=== PATIENT | female | born 1940 | race Caucasian/White ===

== ENCOUNTER 2017-03-16 10:53 | Emergency (ER) | payer MEDICARE, OTHER ==
[~2017-03-16] VITALS: Ht 175.3 cm; Wt 84.1 kg
[~2017-03-16 10:53] MED LIST: ALPR1TAB7 PO; AMIT100T2 PO; IBUP200C PO; LEVO50TA6 PO; OMEP40CA36 PO; OXYB10TA6 PO; PARO40TA3 PO
[2017-03-16 11:04] VITALS: BP 120/69; PULSE 70; RESP 16; O2SAT 97
[2017-03-16] MEDS ORDERED: HYDROcodone-APAP 5-325 mg Tablet PO ONE (11:10)
--- NOTE | 2017-03-16 12:28 | ED.REPORT ---
HPI-Extremity Problem Lower Date of Service Mar 16, 2017 ED Provider: Abner Infante MD 76 y/o relatively healthy female w/ a hx of pheochromocytoma s/p resection, prior pneumonia, presents to the ED due to left ankle injury after she fell down the stairs prior to arrival. Her last meal was at 9:30 this morning at which time she ate nuts and orange juice. She states that she has had pneumonia for 4 months and during her surgery to resect the pheochromocytoma she "flatlined". Pt denies numbness of the foot or any other sites of injury. Nursing Notes Stated Complaint: POSS LT BROKEN ANKLE Chief Complaint: Extremity Trauma Nursing Notes Reviewed: Yes Allergies: Coded Allergies: No Known Allergies (Verified , 03/16/17) Scheduled Amitriptyline (Amitriptyline) 100 Mg Tablet 100 MG PO HS Levothyroxine (Levothyroxine) 50 Mcg Tablet 50 MCG PO DAILY Omeprazole (Omeprazole) 40 Mg Capsule.dr 40 MG PO DAILY Oxybutynin Chloride ER (Ditropan XL) 10 Mg Tab.er.24 10 MG PO DAILY Paroxetine (Paroxetine) 40 Mg Tablet 40 MG PO HS Scheduled PRN Alprazolam (Alprazolam) 1 Mg Tablet 1 MG PO HS PRN PRN For Anxiety Ibuprofen (Ibuprofen) 200 Mg Capsule 200 MG PO QID PRN PRN For Pain General Time Seen by MD: 11:13 Chief Complaint Ankle injury left Hx Obtained From: Patient Arrived By: Walk-in Onset Occurred: Just prior to arrival Symptom Duration: Since onset Caused by: Fall from height... Location: : Ankle left Quality: Painful Severity: Current: Moderate Severity: Maximum: Moderate Recent Healthcare: No recent doctor visit Similar Sx Previous: No Past Medical History Past Medical History Anxiety Depression Pneumonia Marijuana abuse Cystoliths Cervical stenosis Back pain Past Surgical History Adrenal gland removal Cystoscopy Reports: Hysterectomy, Tonsillectomy Smoking History Former Smoker Social History Alcohol Use: "Social" Drug Use: THC Other Social History: Good social support Ambulatory Status Independent Review of Systems Constitutional: Denies: Fever, Weakness - generalized Musculoskeletal: Reports: Joint pain, Joint swelling Neurologic: Denies: Change LOC, Headache, Numbness Complete sys rev & neg: except as marked. Physical Exam Initial Vital Signs Vital Signs (First) Date Time Temp Pulse Resp B/P Pulse Ox O2 Delivery O2 Flow Rate FiO2 03/16/17 11:04 36.9 70 16 120/69 97 Room Air Initial VS: Reviewed, Vital signs normal Head / Eyes: Atraumatic, Normocephalic, PERRL ENT: Mucous membranes moist, Conjunctiva normal, No scleral icterus Neck: Supple, Full range of motion Respiratory: Breath sounds normal, Clear to auscultation, No respiratory distress Cardiovascular: Regular rate & rhythm, Heart sounds normal, Intact distal pulses Abdomen / GI: Soft, Non-tender, No guarding, No rebound, No distention Upper Extremities: Vascular intact, Neuro intact, No swelling, No tenderness Neurologic: Alert, Oriented, Nonfocal Psychiatric: Mood/affect normal, Behavior normal, Normal thought content Lower Extremity / Pelvis / MS: Neurologic intact Ankle / Foot: Neurologic intact, Vascular intact Obvious deformity with swelling of the left ankle Tinting of the skin medial left ankle Pulses intact Good cap refill General/Constitutional: Awake, Alert, Cooperative, Not toxic appearing Interpretation & Diagnostics X-Ray Interpretation Xray Interpretation: FINDINGS: Bones: There are comminuted fractures of the distal tibia and fibula with involvement of the medial, lateral, and posterior malleoli. There is involvement of the tibiotalar joint with posterior dislocation of the talus with respect to the tibia. There is also involvement of the distal tibiofibular syndesmosis which appears widened Soft tissues: There is periarticular soft tissue swelling. IMPRESSION: 1. Comminuted trimalleolar fracture-dislocation of the left ankle. Dictated by: Joe Wan M.D. on 03/16/2017 at 12:43 Approved by: Joe Wan M.D. on 03/16/2017 at 12:47 Study Performed: 3 view X-Ray Ordered: Ankle left Interpretation / Wet Read by: Interpret - Radiologist Xray Interpretation: IMPRESSION: Improved alignment of a complex trimalleolar left ankle fracture, status post closed reduction. There continues to be mild residual posterior subluxation of the talus and the posterior distal tibia and fibula fracture fragments. Dictated by: Kingsley Barakat M.D. on 03/16/2017 at 13:22 Approved by: Kingsley Barakat M.D. on 03/16/2017 at 13:25 Study Performed: 4 view X-Ray Ordered: Ankle left Interpretation / Wet Read by: Interpret - Radiologist Procedures Procedure Notes: Fracture reduction performed at 13:[address] Rivera. Moderate success. Proced Mod Sedation/Analgesia Time: 13:50 Procedure Performed by: ED physician Sedation Time: 10 - 15 min Consent / Setup: Informed consent provided, Consent from patient, Time-out performed, Hand hygiene observed, Stand sterile technique, Position supine Indication: Fracture reduction Preparation: environmental intern applied, Pulse oximeter applied, Constant attendance, IV access established, Eval last meal time, Supplemental oxygen, Procedure explained, Suction available, End tidal CO2 mon applied VS Prior to Procedure: All vital signs normal, O2 saturation normal, Blood pressure normal, Heart Rate normal, Respiratory rate normal Mallampati: Class & Anatomy: 2 top tonsil/uvula/palate Airway Exam: Normal facial anatomy, Normal neck anatomy, Normal anatomy CVS/Resp Exam: Normal breath sounds, Normal heart sounds Neuro Exam: Alert, No acute distress, Responsive Sedation: Sedation: Propofol (100mg) ASA Classification: 3 sev disease/not incap Response During Procedure: Handled secretions adeq, Maintained airway well, Oxygenation stable, Sedation appropriate, Vital signs stable Complications During/After: None Reversal: None required Mental Status After Procedure: Alert, Oriented X3 Post-Procedure: Vital signs normal Attestation: I performed sedation Re-Eval/Medical Decision Med Decision/Clinical Course 76-year-old female history of smoking, pheochromocytoma status post resection, pneumonia presenting status post fall down stairs with left ankle trimalleolar fracture dislocation. Consulted orthopedics and we reduced. I performed conscious sedation with propofol as above. Orthopedics requested transfer to [facility] for higher level of care for surgical repair. Pulses and neurovascularly intact status post reduction and splint placement. Transferred to [facility] via ALS. Source of Hx: Old records Re-Evaluation/Progress : Time of Eval: 12:28 Re-Evaluation/Progress Note: Pt rechecked. Discussed imaging results and diagnosis. Informed the pt of the plan to transfer to [facility]. Pt understands and agrees with plan. Consultation : Referral / Consult Name: Art Rivera MD Consulted With: Orthopedic Call Returned at: 12:52 Licensed Pharmacist: Will see patient, Agrees with eval, Agrees with plan Note: Dr. Rivera performed fracture/dislocation reduction in the ED and recommends transfer to [facility]. Counseled Regarding: Diagnosis, Need for transfer Discharge & Departure Impression: Primary Impression: Trimalleolar fracture of left ankle Encounter type: initial encounter Fracture type: closed Qualified Code: S82.852A - Displaced trimalleolar fracture of left lower leg, initial encounter for closed fracture Additional Impression: Traumatic dislocation of left ankle Encounter type: initial encounter Qualified Code: S93.05XA - Dislocation of left ankle joint, initial encounter Disposition: Transfer, Acute Care Facility Transfer Requested at: 14:35 Receiving Hospital: [facility] Transfer Accepted: Yes Transfer Accepted at: 14:35 Transfer Reason: Trauma Spoke with: Emergency physician, Specialty physician Patient Informed: Yes Discharge Condition All VS Reviewed: Yes Referrals: Tomi Stoll MD (PCP) Crit Care Except Billable Proc Time Spent: 30-74 minutes Services Performed: Patient management by me, Time spent at bedside, Reviewing test results, Reviewing imaging, Discussing patient care, Documentation in record, Time with fam/surrogate Critical Care Notes: 35 minutes Scribe Attestation Portions of this note were transcribed by Enma Londono. I, , personally performed the history, physical exam and medical decision-making;I reviewed and confirmed the accuracy of the information in the transcribed note. Signed by Enma Ro and Андрей Hunt. 03/16/17 TIME copies to: Tomi Stoll MD, Ben M MD Mar 16, 2017 12:28 Enma Ro Mar 16, 2017 13:34 THEODORE LONDONO Mar 16, 2017 14:32
[2017-03-16] MEDS ORDERED: Ondansetron 2 mg/mL 2 mL Inj IVPUSH PRN (12:35)
[2017-03-16] MEDS ORDERED: HYDROmorphone 1 mg/mL Inj IVPUSH PRN (12:35)
--- NOTE | 2017-03-16 12:49 | DRSVH ---
PROCEDURE: X-RAY LEFT ANKLE, MINIMUM THREE VIEWS ([id number]) INDICATIONS: trauma TECHNIQUE: 3 views of the ankle were acquired. COMPARISON: None. FINDINGS: Bones: There are comminuted fractures of the distal tibia and fibula with involvement of the medial, lateral, and posterior malleoli. There is involvement of the tibiotalar joint with posterior disloc ation of the talus with respect to the tibia. There is also involvement of the distal tibiofibular s yndesmosis which appears widened Soft tissues: There is periarticular soft tissue swelling. IMPRESSION: 1. Comminuted trimalleolar fracture-dislocation of the left ankle. Dictated by: Joe Wan M.D. on 03/16/2017 at 12:43 Approved by: Joe Wan M.D. on 03/16/2017 at 12:47
[2017-03-16] MEDS ORDERED: Propofol 10 mg/mL 20 mL Inj ONE (13:36)
[2017-03-16] MEDS ORDERED: Propofol 10 mg/mL 20 mL Inj IVPUSH ONE (13:40)
--- NOTE | 2017-03-16 14:27 | DRSVH ---
PROCEDURE: X-RAY LEFT ANKLE, TWO VIEWS ([id number]) INDICATIONS: POST REDUCTION TECHNIQUE: At least 2 views of the ankle were acquired. COMPARISON: [facility], CR, XR ANKLE 3VW LT, 03/16/2017, 11:52. FINDINGS: Significant interval improvement in the alignment of the ankle fracture is evident on the provided im ages. However, there continues to be residual posterior subluxation of the smaller fracture fragment s of the posterior distal tibia and the fibula. Additionally, the talus is positioned more posterior ly with respect to the principal (largest) tibia and fibula fracture fragments. A complex trimalleol ar fracture is again evident. The medial malleolar fracture fragment is grossly within normal limits with respect to the talus. The lateral malleolus fracture fragment also is grossly within normal li mits with respect to the talus. Soft tissue swelling about the fracture site is evident. No fractur es are appreciated. IMPRESSION: Improved alignment of a complex trimalleolar left ankle fracture, status post closed redu ction. There continues to be mild residual posterior subluxation of the talus and the posterior dist al tibia and fibula fracture fragments. Dictated by: Kingsley Barakat M.D. on 03/16/2017 at 13:22 Approved by: Kingsley Barakat M.D. on 03/16/2017 at 13:25
[2017-03-16 15:34] VITALS: BP 132/78; PULSE 78; RESP 15; O2SAT 98
--- NOTE | 2017-03-16 22:06 | CONS ---
[address] [address] CONSULTATION REPORT PATIENT: FERNANDO DUQUE : 1940 MR#: [id number] ADMIT: 03/16/2017 JOB ID: [id number] DATE OF SERVICE: CPT CODE in Emergency Room 79472 03/16/2017 CHIEF COMPLAINT: A 76-year-old female whom I was asked to see in orthopedic consultation by Dr. Abner Guzman for a left ankle trimalleolar pilon-type fracture dislocation. Patient fell down some stairs prior to arrival, sustaining the above injury. The patient had significant tenting of the skin and some decreased peripheral pulses over the posterior tibial pulse. I immediately came from the office to the emergency department to reduce her ankle under IV sedation. Of medical significance, the patient does have hypothyroidism, has had a history of pheochromocytoma status post resection and evidently she states she "flat lined" at the time of that surgery. She has had pneumonia according to her history for the past four months. ADDITIONAL MEDICAL HISTORY: Patient states that she has problems with anxiety, depression, marijuana abuse, chronic urinary tract infection. She has chronic low back pain, chronic cervical pain with cervical degenerative changes and stenosis. Prior surgeries include adrenal gland removal, cystoscopy and prior hysterectomy and tonsillectomy. SOCIAL HISTORY: Patient is a former smoker. Lives with her . She uses marijuana regularly. First used to smoke the marijuana for pain and now states she uses oral marijuana. She drinks socially. CURRENT MEDICATIONS: 1. Amitriptyline. 2. Levothyroxine. 3. Omeprazole. 4. Oxybutynin. 5. Paroxetine. 6. Xanax p.r.n. 7. Ibuprofen p.r.n. The patient also reports she has chronic body pain. REVIEW OF SYSTEMS: HEENT: She does have problems with chronic decreased hearing. Denies any blurring of vision. Respiratory: She does have a chronic cough with this recent prolonged history of pneumonia. Cardiovascular: No chest pain. GI: No nausea, vomiting. Musculoskeletal: Left ankle pain with deformity. Neurologic: No headache or dizziness. Psychiatric: Does have problems with anxiety and depression. PHYSICAL EXAMINATION: A 175 cm, 84 kg female. Temperature 36.9, pulse 70, respirations 16, blood pressure 120/69, pulse ox of 97. Left ankle is grossly deformed. There is tenting of the skin medially. She has intact tibialis anterior pulse, but has a diminished posterior tibial pulse. The ankle is deformed in a medial to lateral direction as well as an anteroposterior direction. Her calf is soft. Skin is dry. Does have problems with chronic intermittent swelling with that left leg. The patient is able to move her toes. Sensory appears to be intact. IMAGING: X-rays show that she has a severely comminuted left ankle trimalleolar pilon-type fracture dislocation. There is severe comminution of the fibula, comminution of the medial malleolus. There is comminuted intra-articular fracture of the tibia encompassing 1/2 of the joint surface. She may also have damage to a portion of the talus. The tibia is dislocated anterior to the foot, and there is severe valgus positioning of the ankle. Under IV conscious sedation with emergency department physician assistance, I did improve the alignment of the ankle, correcting the valgus deformity, and markedly improving the anterior dislocation of the tibia on the talus. There appear to be some impinging bone fragments interfering with complete reduction, but the tenting of the skin was resolved and the circulation was improved. The foot was cleansed and dried. Xeroform was placed on the skin to help decrease risk for blistering. The patient was placed in a well-padded sugar tong and posterior splint. IMPRESSION: Severe comminution, left ankle, trimalleolar pilon-type fracture dislocation with possible partial damage to at least the posterior aspect of the talus. Due to the severity of the comminution and the displacement of the fragments and the pilon-type of injury, I feel the patient is best served by transferring to [facility]. I have reviewed the films with two of my orthopedic colleagues and they also concur that transfer is indicated. [facility] has accepted the patient. The patient to be transferred by ACLS today. She also has other multiple medical concerns, in particular she has had recent problems with pneumonia over the past four months. The patient has consented to the transfer. One of the biggest concerns with this pilon-type of trimalleolar fracture dislocation is the anticipated swelling and potential problems with the skin healing and superficial hardware. CC: EMILY- Orthopedics CC: Suleiman Evans
--- NOTE | 2017-03-16 22:14 | OP ---
[address] [address] OPERATIVE REPORT PATIENT: FERNANDO DUQUE : 1940 MR#: [id number] ADMIT: 03/16/2017 JOB ID: [id number] DATE OF SURGERY: 03/16/2017 SURGEON: Art Rivera MD. PREOPERATIVE DIAGNOSIS(ES): Left ankle trimalleolar pilon-type fracture dislocation. Trimalleolar fracture- S82.852A Left ankle tibial pilon fracture S82.872A Left ankle tibial talar dislocation S93.05XA POSTOPERATIVE DIAGNOSIS(ES): Left ankle trimalleolar pilon-type fracture dislocation. Left ankle trimalleolar fracture - S82.852A Left ankle tibial pilon fracture- S82.872A Left ankle tibial talar joint dislocation - S93.05XA PROCEDURE: Closed reduction, left ankle, trimalleolar pilon-type fracture dislocation with IV conscious sedation in the emergency department. CPT code 30210. INDICATIONS: This is a 76-year-old female fell down some stairs, sustaining the above injury. The x-rays were noted to show a severely comminuted trimalleolar fracture dislocation with a tibial pilon type of component with severe comminution of the fibula, comminution of the medial malleolar fragment and fracture involving half of the joint surface of the distal tibia posteriorly with comminution and dislocation.Possible injury to the talus. PROCEDURE IN DETAIL: Under adequate IV conscious sedation, I placed the leg in flexion to relax the gastroc muscles. I corrected the severe valgus deformity and corrected the tenting of the skin medially. I then was able to markedly improve the anterior displacement of the tibia on the talus. There was still some bony soft tissue interposition, but the alignment was markedly improved. The patient's capillary refill improved as well as the pulses improved after the reduction. I placed Xeroform on the skin to help decrease the risk for skin blistering and placed her in a very well-padded, short leg, fiberglass sugar-tong and posterior splint. Due to the severity of the injury after also reviewing films with two of my orthopedic colleagues, decision was made that the patient would be best served by transferring her to [facility] for further definitive treatment. Copies of the x-rays were sent, and the patient consented to referral and transfer, accepting physician was obtained. CC: EMILY-Orthopedics CC: Suleiman Evans
== END 2017-03-16 15:35 | disposition short-term general hospital (02) ==
LOC: SED 10:53
DX: S82.852A Displaced trimalleolar fracture of left lower leg, initial encounter for closed fracture (principal); S93.05XA Dislocation of left ankle joint, initial encounter; W10.8XXA Fall (on) (from) other stairs and steps, initial encounter; Y93.9 Activity, unspecified; Y92.9 Unspecified place or not applicable; Y99.9 Unspecified external cause status; Z87.891 Personal history of nicotine dependence; Z90.710 Acquired absence of both cervix and uterus; Z79.899 Other long term (current) drug therapy
CPT/HCPCS: 27842; 73600; 73610; 94799; 96372; 99156; 99291; J1170